=== PATIENT | female | born 1995 | race Caucasian/White ===

== ENCOUNTER 2018-01-29 23:31 | Inpatient (IN) | payer OTHER ==
[~2018-01-29] VITALS: Ht 165.1 cm; Wt 92.0 kg
[~2018-01-29 23:31] MED LIST: KEFLEX500 MG PO
[2018-01-30] MEDS ORDERED: TUMS200 MG PO (00:17)
[2018-01-30] MEDS ORDERED: VITAFOL-OB+DHA1 EACH PO (00:17)
--- NOTE | 2018-01-30 03:38 | PR ---
[facility] [address], [place] [address] Signed Progress Notes IP Datetime Report Generated by SHAHEEN: 01/30/2018 03:38 PROGRESS NOTES: [id number] Impression: Normal progression of labor Procedures: Sterile Vag Exam Plan: Continue present management Informed Consent Obtain: Vaginal Delivery; Risks, Benefits and Alternatives Discussed VITAL SIGNS: [id number] Vital Signs: Reviewed; Within Normal Limits EXAM: [id number] Dilatation: 6.0 Effacement: 80 Station: -2 Uterine Contractions: q 1 to 3 min MEMBRANES: [id number] Membrane Status: Ruptured Amniotic Fluid Color: Clear Comments: Essentially unchanged from last exam. Will change positions. Fetus A: [id number] FHR Baseline: 125 Variability: Moderate 6-25bpm Accelerations: 15X15 Decelerations: None FHR Category: Category I Presentation: Vertex Comments on Fetus A: No evidence of metabolic acidosis. Fetus B: [id number] Signing Physician: Kristina Membreno MD Copies: ~ *Electronically Signed* 01/30/18 0338 KRISTINA MEMBRENO MD PATIENT NAME: ALANA JONES PROGRESS NOTE DATE OF : 97 PHYSICIAN: KRISTINA MEMBRENO MD RPT #: [id number] REPORT IS CONFIDENTIAL AND NOT TO BE RELEASED WITHOUT AUTHORIZATION
== END 2018-01-31 11:50 | disposition home or self-care (01) | DRG 775 ==
LOC: FBCO 23:31 → FBC 23:42
PROVIDERS: ADMIT Obstetrics & Gynecology
PROC: 10E0XZZ Delivery of Products of Conception, External Approach (ICD-10-PCS; principal; 2018-01-29)
DX: O42.02 Full-term premature rupture of membranes, onset of labor within 24 hours of rupture (principal); Z3A.39 39 weeks gestation of pregnancy; Z37.0 Single live birth
CPT/HCPCS: 36415; 85027; J2590

== ENCOUNTER 2020-07-13 19:19 | Emergency (ER) | payer OTHER ==
[~2020-07-13] VITALS: Ht 165.1 cm; Wt 94.3 kg
[~2020-07-13 19:19] MED LIST changes: +TUMS200 MG PO; +VITAFOL-OB+DHA1 EACH PO
== END 2020-07-13 20:05 | disposition home or self-care (01) ==
LOC: ED 19:19
DX: O9A.211 Injury, poisoning and certain other consequences of external causes complicating pregnancy, first trimester (principal); S30.1XXA Contusion of abdominal wall, initial encounter; S30.0XXA Contusion of lower back and pelvis, initial encounter; Z3A.14 14 weeks gestation of pregnancy; V29.9XXA Motorcycle rider (driver) (passenger) injured in unspecified traffic accident, initial encounter
CPT/HCPCS: 99283

== ENCOUNTER 2020-12-26 04:34 | Inpatient (IN) | payer OTHER ==
--- NOTE | 2020-12-26 05:35 | NUR ---
0523 COVID swab obtained and taken to lab for processing.
== END 2020-12-27 12:35 | disposition home or self-care (01) | DRG 807 ==
LOC: FBCO 04:34 → FBC 04:52
PROVIDERS: ADMIT Obstetrics & Gynecology; ATTEND Obstetrics & Gynecology
PROC: 10E0XZZ Delivery of Products of Conception, External Approach (ICD-10-PCS; principal; 2020-12-26)
PROC: 10907ZC Drainage of Amniotic Fluid, Therapeutic from Products of Conception, Via Natural or Artificial Opening (ICD-10-PCS; 2020-12-26)
DX: O69.81X0 Labor and delivery complicated by cord around neck, without compression, not applicable or unspecified (principal); Z37.0 Single live birth; Z3A.38 38 weeks gestation of pregnancy; Z98.890 Other specified postprocedural states
CPT/HCPCS: 85027; A9270; C9803; J2590; J7121; U0003

== ENCOUNTER 2022-05-11 10:00 | Emergency (ER) | payer OTHER ==
[~2022-05-11] VITALS: Ht 165.1 cm; Wt 78.9 kg
[2022-05-11] MEDS ORDERED: PROTONIX40 MG PO (19:06)
== END 2022-05-11 19:18 | disposition home or self-care (01) ==
LOC: ED 10:00
DX: R10.13 Epigastric pain (principal); Z88.1 Allergy status to other antibiotic agents
CPT/HCPCS: 36415; 80053; 81001; 83690; 83735; 84703; 85025; 87502; 96374; 99284-25; J2405; U0003

== ENCOUNTER 2023-02-19 08:00 | Inpatient (IN) | payer OTHER ==
[~2023-02-19 08:00] MED LIST changes: +PROTONIX40 MG PO
[2023-02-19 08:32] LABS: AMNISURE ROM TEST POSITIVE
[2023-02-19 09:07] LABS: AMPHETAMINES, UR NEGATIVE (NEGATIVE); BARBITURATES, UR NEGATIVE (NEGATIVE); BENZODIAZEPINES, UR NEGATIVE (NEGATIVE); BUPRENORPHINE,UR NEGATIVE (NEGATIVE); COCAINE, UR NEGATIVE (NEGATIVE); MARIJUANA (THC), UR NEGATIVE (NEGATIVE); MDMA, UR NEGATIVE (NEGATIVE); METHADONE, UR NEGATIVE (NEGATIVE); METHAMPHETAMINE, UR NEGATIVE (NEGATIVE); OPIATES, UR NEGATIVE (NEGATIVE); OXYCODONE, UR NEGATIVE (NEGATIVE); PHENCYCLIDINE, UR NEGATIVE (NEGATIVE); TRICYCLIC ANTIDEPRESSANT, UR NEGATIVE (NEGATIVE)
--- NOTE | 2023-02-19 09:30 | NUR ---
RT COLLECTED RAPID COVID 19, RSV, AND FLU SWAB PER DR REQUEST USING IN HOUSE LAB WITH NO COMPLICATIONS AT THIS TIME.
[2023-02-19 09:44] VITALS: BP 119/67
[2023-02-19 09:49] LABS: HEMATOCRIT 37.7 % (35.0-50.0); HEMOGLOBIN 12.5 g/dL (12.0-18.0); MCH 29.3 (27-36); MCHC 33.2 g/dl (30-36); MCV 88.1 fl (81-99); RBC 4.28 M/ul (4.3-5.7); RDW 14.7 (10.5-15.0)
[2023-02-19 10:16] LABS: INFLUENZA B NAA NEGATIVE (NEGATIVE); RESPIRATORY SYNCYTIAL VIR NAA NEGATIVE (NEGATIVE)
[2023-02-19 10:26] LABS: ABO A; ANTIBODY SCREEN NEGATIVE; RH POSITIVE
--- NOTE | 2023-02-19 16:14 | PR ---
[facility] [address] [facility] [address] [facility] [address] [place], [place] [address] Signed Progress Notes IP Datetime Report Generated by CPN: 02/19/2023 16:13 PROGRESS NOTES: [id number] Impression: Normal Progression of Labor; Reassuring Heart Rate Procedures: Intrauterine Pressure Catheter; Sterile Vag Exam Plan: Continue Present Management; Anticipate Vaginal Delivery Informed Consent Obtain: Vaginal Delivery VITAL SIGNS: [id number] Vital Signs: Reviewed; Within Normal Limits EXAM: [id number] Dilatation: 7.0 Effacement: 80 Station: -1 Contractions: irregular with irritability MEMBRANES: [id number] ROM Note: Large amount of fluid noted at this time Comments: Pt seen and examined. Doing well. Pain tolerable w/ nitrous oxide. Pitocin augmentation. FHT reassuring. IUPC placed to help monitor contractions closer. Anticipate soon. All questions answered. FETUS A: [id number] FHR Baseline: 125 Variability: Moderate 6-25bpm Accelerations: 15X15 Decelerations: None FHR Category: Category I Presentation: Vertex FETUS B: [id number] Signing Physician: Diana Alexis DO Copies: ~ *Electronically Signed* 02/19/23 2193 DIANA ALEXIS (JALEESA) DO PATIENT NAME: ALANA ROSADO PROGRESS NOTE DATE OF : 97 PHYSICIAN: DIANA ALEXIS (JD) DO RPT #: [id number] REPORT IS CONFIDENTIAL AND NOT TO BE RELEASED WITHOUT AUTHORIZATION
[2023-02-20 05:33] LABS: MCH 29.5 (27-36); MCHC 33.5 g/dl (30-36); RBC 4.09 M/ul (4.3-5.7); RDW 14.5 (10.5-15.0)
--- NOTE | 2023-02-20 10:02 | PR ---
[facility] [address] [place], [place] [address] Signed PP Progress Notes Datetime Report Generated by CPN: 02/20/2023 10:02 SUBJECTIVE: [id number] Pain: Within Normal Limits Nausea/Vomiting: Denies Flatus: Yes Bowel Movement: Yes Vital Signs: [id number] Vital Signs: Reviewed; Within Normal Limits Abdomen/Uterus: Normal Lochia: Normal Extremities: Normal Progress: Normal IMPRESSION/PLAN/PROCEDURES: [id number] Impression: Normal Progression Plan: Discharge Procedures: None Progress Notes: S: 27 you s/p . PPD #1. Doing well. Denies CALIXTO, CP, SOB, F/C, N/V, RUQ pain, changes in vision, vaginal discharge. Tolerating regular diet, ambulating, voiding on her own, pain well controlled. O: AFVSS Abd: Soft, non tender. Fundus firm and below umbilicus. Musc: FELDMAN. No C/C/E. A/P: Paient well. Meeting all hospital milestones. Will discharge home today. Signing Physician: Anita Rosado MD Copies: ~ *Electronically Signed* 02/20/23 1002 ANITA ROSADO MD PATIENT NAME: ALANA ROSADO PROGRESS NOTE DATE OF : 97 PHYSICIAN: ANITA ROSADO MD RPT #: [id number] REPORT IS CONFIDENTIAL AND NOT TO BE RELEASED WITHOUT AUTHORIZATION
== END 2023-02-20 18:02 | disposition home or self-care (01) | DRG 807 ==
LOC: FBCO 08:00 → FBC 08:38
PROVIDERS: Obstetrics & Gynecology; ADMIT Obstetrics & Gynecology; ATTEND Obstetrics & Gynecology
PROC: 10E0XZZ Delivery of Products of Conception, External Approach (ICD-10-PCS; principal; 2023-02-19)
PROC: 10H07YZ Insertion of Other Device into Products of Conception, Via Natural or Artificial Opening (ICD-10-PCS; 2023-02-19)
DX: O42.02 Full-term premature rupture of membranes, onset of labor within 24 hours of rupture (principal); Z37.0 Single live birth; O76 Abnormality in fetal heart rate and rhythm complicating labor and delivery; Z20.822 Contact with and (suspected) exposure to COVID-19; Z67.10 Type A blood, Rh positive; Z3A.38 38 weeks gestation of pregnancy
CPT/HCPCS: 36415; 84112; 85027; 86850; 86900; 86901; 87502; A9270; C9803; J2590; U0002

== ENCOUNTER 2025-01-25 15:27 | Inpatient (IN) | payer OTHER ==
[~2025-01-25] VITALS: Ht 167.6 cm; Wt 102.1 kg
[2025-01-25] MEDS ORDERED: LIDOCAINE HCL 1% 30 ML SDV INJ PRN (16:45)
[2025-01-25] MEDS ORDERED: TERBUTALINE SULFATE 1 MG/ML AMP SUB-Q PRN (16:45)
[2025-01-25] MEDS ORDERED: MAGNESIUM HYDROXIDE/AL HYDROX 30 ML CUP PO PRN (16:45)
[2025-01-25] MEDS ORDERED: CALCIUM CARBONATE 500 MG CHEW PO PRN (16:45)
[2025-01-25] MEDS ORDERED: PENICILLIN G POTASSIUM 5 MUNITS in SODIUM CHLORIDE 0.9% 100 ML IV ONE (17:00)
[2025-01-25 17:11] LABS: MCH 27.2 PG (25.6-32.2); MCHC 32.5 g/dL (32.2-35.5); MCV 83.7 fL (79.4-94.8); RBC 3.86 M/uL (3.93-5.22)
[2025-01-25] MEDS ORDERED: LACTATED RINGER'S 1,000 ML IV PRN (17:15)
[2025-01-25 17:41] LABS: AMPHETAMINES, URINE NEGATIVE (NEGATIVE); BARBITURATES, URINE NEGATIVE (NEGATIVE); BENZODIAZEPINE, URINE NEGATIVE (NEGATIVE); CANNABINOID, URINE NEGATIVE (NEGATIVE); COCAINE, URINE NEGATIVE (NEGATIVE); ECSTASY, URINE NEGATIVE (NEGATIVE); FENTANYL, URINE NEGATIVE (NEGATIVE); METHADONE, URINE NEGATIVE (NEGATIVE); OPIATES, URINE NEGATIVE (NEGATIVE); OXYCODONE, URINE NEGATIVE (NEGATIVE); PHENCYCLIDINE, URINE NEGATIVE (NEGATIVE)
[2025-01-25] MEDS ORDERED: OXYTOCIN/0.9 % SODIUM CHLORIDE 500 ML IV SCH (17:45)
[2025-01-25 17:49] LABS: ABO A; ANTIBODY SCREEN NEGATIVE; RH POSITIVE
--- NOTE | 2025-01-25 19:25 | PR ---
[facility] [address] [place], [place] [address] Signed Progress Notes IP Datetime Report Generated by CPN: 01/25/2025 19:25 PROGRESS NOTES: [id number] Impression: Normal Progression of Labor; Reassuring Heart Rate Procedures: Sterile Vag Exam Plan: Continue Present Management Informed Consent Obtain: Vaginal Delivery VITAL SIGNS: [id number] Vital Signs: Reviewed; Within Normal Limits EXAM: [id number] Dilatation: 5.0 Effacement: 60 Station: -3 Contractions: q 1-4 min MEMBRANES: [id number] Comments: Pt seen and examined. Contractions uncomfortable. No SROM / bleeding. Cx 5/60. Continue expectant management. Plan AROM after second dose of PCN. All questions answered. FETUS A: [id number] FHR Baseline: 125 Variability: Moderate 6-25bpm Accelerations: 15X15 (Annotations: Data stored by N on behalf of user) Decelerations: None FHR Category: Category I Presentation: Vertex Comments on Fetus A: No evidence of metabolic acidosis FETUS B: [id number] Signing Physician: Diana Alexis DO Copies: ~ *Electronically Signed* 01/25/251924 DIANA ALEXIS (JALEESA) DO PATIENT NAME: ALANA ROSADO PROGRESS NOTE DATE OF : 97 PHYSICIAN: DIANA ALEXIS) DO RPT #: [id number] REPORT IS CONFIDENTIAL AND NOT TO BE RELEASED WITHOUT AUTHORIZATION
[2025-01-25] MEDS ORDERED: PENICILLIN G POTASSIUM 2.5 MUNITS in DEXTROSE 5% 100 ML IV SCH (21:00)
--- NOTE | 2025-01-25 22:27 | PR ---
[facility] [address] [place], [place] [address] Signed Progress Notes IP Datetime Report Generated by CPN: 01/25/2025 22:27 PROGRESS NOTES: [id number] Impression: Normal Progression of Labor; Reassuring Heart Rate Procedures: Artificial ROM; Sterile Vag Exam Plan: Continue Present Management; Anticipate Vaginal Delivery Informed Consent Obtain: Vaginal Delivery VITAL SIGNS: [id number] Vital Signs: Reviewed; Within Normal Limits EXAM: [id number] Dilatation: 5.5 Effacement: 60 Station: -2 Contractions: irregular MEMBRANES: [id number] Comments: Pt seen and examined. Doing well. Comfortable w/ contractions. Declines epidural. Vertex well applied. Recommened AROM which was performed w/out difficulty for moderate amount clear fluid. Mother and fetus tolerated well. FETUS A: [id number] FHR Baseline: 125 Variability: Moderate 6-25bpm Accelerations: 15X15 (Annotations: Data stored by N on behalf of user) Decelerations: None FHR Category: Category I Presentation: Vertex Comments on Fetus A: No evidence of metabolic acidosis FETUS B: [id number] Signing Physician: Diana Alexis DO Copies: ~ *Electronically Signed* 01/25/252226 DIANA ALEXIS (JALEESA) DO PATIENT NAME: ALANA ROSADO PROGRESS NOTE DATE OF : 97 PHYSICIAN: DIANA ALEXIS) DO RPT #: [id number] REPORT IS CONFIDENTIAL AND NOT TO BE RELEASED WITHOUT AUTHORIZATION
--- NOTE | 2025-01-26 02:31 | PR ---
[facility] [address] [place], [place] [address] Signed Progress Notes IP Datetime Report Generated by CPN: 01/26/2025 02:31 PROGRESS NOTES: [id number] Impression: Normal Progression of Labor; Reassuring Heart Rate Procedures: Intrauterine Pressure Catheter; Scalp Electrode; Sterile Vag Exam Plan: Continue Present Management Informed Consent Obtain: Vaginal Delivery VITAL SIGNS: [id number] Vital Signs: Reviewed; Within Normal Limits EXAM: [id number] Dilatation: 5.5 Effacement: 60 Station: -2 Contractions: q 2 min MEMBRANES: [id number] Comments: Pt seen and examined. Doing well. Contractions more uncomfortable. Minimal cervical change on exam. Recommended IUPC and FSE and pt agreed. Placed w/out difficulty. Will monitor contractions for adequacy and consider augmentation if needed. All questions answered. FETUS A: [id number] FHR Baseline: 125 Variability: Moderate 6-25bpm Accelerations: 15X15 (Annotations: Data stored by N on behalf of user) Decelerations: None FHR Category: Category I Presentation: Vertex Comments on Fetus A: No evidence of metabolic acidosis FETUS B: [id number] Signing Physician: Diana Alexis DO Copies: ~ *Electronically Signed* 01/26/25 0231 DIANA ALEXIS (JALEESA) DO PATIENT NAME: ALANA ROSADO PROGRESS NOTE DATE OF : 97 PHYSICIAN: DIANA ALEXIS (JD) DO RPT #: [id number] REPORT IS CONFIDENTIAL AND NOT TO BE RELEASED WITHOUT AUTHORIZATION
--- NOTE | 2025-01-26 05:59 | PR ---
[facility] [address] [place], [place] [address] Signed Progress Notes IP Datetime Report Generated by CPN: 01/26/2025 05:59 PROGRESS NOTES: [id number] Impression: Normal Progression of Labor; Reassuring Heart Rate Procedures: Intrauterine Pressure Catheter; Scalp Electrode; Sterile Vag Exam Plan: Continue Present Management; Anticipate Vaginal Delivery Informed Consent Obtain: Vaginal Delivery VITAL SIGNS: [id number] Vital Signs: Reviewed; Within Normal Limits EXAM: [id number] Dilatation: 7.0 Effacement: 60 Station: -3 Contractions: q 2 min MEMBRANES: [id number] Comments: Pt seen and examined. Doing well. Contractions more uncomfortable. Minimal cervical change on exam. Recommended IUPC and FSE and pt agreed. Placed w/out difficulty. Will monitor contractions for adequacy and consider augmentation if needed. All questions answered. FETUS A: [id number] FHR Baseline: 125 Variability: Moderate 6-25bpm Accelerations: 15X15 (Annotations: Data stored by N on behalf of user) Decelerations: Variable FHR Category: Category II Presentation: Vertex Comments on Fetus A: No evidence of metabolic acidosis FETUS B: [id number] Signing Physician: Diana Alexis DO Copies: ~ *Electronically Signed* 01/26/25 0559 DIANA ALEXIS (JALEESA) DO PATIENT NAME: ALANA ROSADO PROGRESS NOTE DATE OF : 97 PHYSICIAN: DIANA ALEXIS) DO RPT #: [id number] REPORT IS CONFIDENTIAL AND NOT TO BE RELEASED WITHOUT AUTHORIZATION
[2025-01-26] MEDS ORDERED: OXYTOCIN/0.9 % SODIUM CHLORIDE 500 ML IV SCH ×2 (08:00→11:30)
--- NOTE | 2025-01-26 09:30 | PR ---
[facility] [address] [place], [place] [address] Signed Progress Notes IP Datetime Report Generated by CPN: 01/26/2025 09:29 PROGRESS NOTES: [id number] Impression: Normal Progression of Labor; Reassuring Heart Rate Procedures: Sterile Vag Exam Plan: Continue Present Management Other Plans: Continues on pitocin augmentation Informed Consent Obtain: Vaginal Delivery VITAL SIGNS: [id number] Vital Signs: Reviewed; Within Normal Limits EXAM: [id number] Dilatation: 7.0 Effacement: 70 Station: -2 Contractions: q 2-4 minutes MEMBRANES: [id number] Comments: Pt seen and examined. Doing well. Ctxs more painful and feeling more pelvic pressure. On low dose pitocin. No concerns. Anticipate FETUS A: [id number] FHR Baseline: 125 Variability: Moderate 6-25bpm Accelerations: 15X15 (Annotations: Data stored by CPN on behalf of user) Decelerations: Variable FHR Category: Category II Presentation: Vertex Comments on Fetus A: No evidence of metabolic acidosis FETUS B: [id number] Signing Physician: Diana Alexis DO Copies: ~ *Electronically Signed* 01/26/25928 DIANA ALEXIS (JALEESA) DO PATIENT NAME: ALANA ROSADO PROGRESS NOTE DATE OF : 97 PHYSICIAN: DIANA ALEXIS (JD) DO RPT #: [id number] REPORT IS CONFIDENTIAL AND NOT TO BE RELEASED WITHOUT AUTHORIZATION
[2025-01-26] MEDS ORDERED: TRANEXAMIC ACID IN NACL,ISO-OS 0 ML IV ONE (10:58)
[2025-01-26] MEDS ORDERED: MAGNESIUM HYDROXIDE 30 ML UDC PO PRN (11:30)
[2025-01-26] MEDS ORDERED: IBUPROFEN 600 MG TAB PO PRN (11:30)
[2025-01-26] MEDS ORDERED: WITCH HAZEL/GLYCERIN 1 EA PAD TOP PRN (11:30)
[2025-01-26] MEDS ORDERED: MAGNESIUM HYDROXIDE/AL HYDROX 30 ML CUP PO PRN (11:30)
[2025-01-26] MEDS ORDERED: BENZOCAINE 60 ML AEROSOL TOP PRN (11:30)
[2025-01-26] MEDS ORDERED: CALCIUM CARBONATE 500 MG CHEW PO PRN (11:30)
[2025-01-26] MEDS ORDERED: HYDROCORTISONE ACETATE 25 MG SUPP PR PRN (11:30)
[2025-01-26] MEDS ORDERED: ACETAMINOPHEN 325 MG TAB PO PRN (11:30)
[2025-01-26] MEDS ORDERED: SENNOSIDES/DOCUSATE 1 EA TAB PO SCH (21:00)
[2025-01-27 05:57] LABS: MCH 27.1 PG (25.6-32.2); MCHC 33.0 g/dL (32.2-35.5); MCV 82.3 fL (79.4-94.8); RBC 3.5 M/uL (3.93-5.22)
--- NOTE | 2025-01-27 07:40 | PR ---
[facility] [address] [facility] [place], [place] [address] Signed PP Progress Notes Datetime Report Generated by CPN: 01/27/2025 07:40 SUBJECTIVE: [id number] Pain: Within Normal Limits Nausea/Vomiting: Present Flatus: Yes Bowel Movement: No Vital Signs: [id number] Vital Signs: Reviewed; Within Normal Limits Cardiovascular: Normal Respiratory: Normal Abdomen/Uterus: Normal Lochia: Normal Vulva/Perineum: Not Done Breasts: Not Done CVA Tenderness: Normal Extremities: Normal Incision: Not Applicable Progress: Normal Exam Comments: Fundus firm U-2 nontender IMPRESSION/PLAN/PROCEDURES: [id number] Impression: Normal Progression Plan: Discharge Progress Notes: Pt seen and examined. Doing well. Ambulating, voiding, and tolerating full diet. Pain and lochia minimal. . No fevers/chills or other concerns. Desires d/c home. Reviewed d/c instructions and medications (Ibuprofen and ferrous sulfate). Desires bilateral salpingectomy . Reviewed AM Hgb. All questions answered. Signing Physician: Diana Alexis DO Copies: ~ *Electronically Signed* 01/27/25 0740 DIANA ALEXIS (JALEESA) DO PATIENT NAME: ALANA ROSADO PROGRESS NOTE DATE OF : 97 PHYSICIAN: DIANA ALEXIS (JD) DO RPT #: [id number] REPORT IS CONFIDENTIAL AND NOT TO BE RELEASED WITHOUT AUTHORIZATION
== END 2025-01-27 14:26 | disposition home or self-care (01) | DRG 807 ==
LOC: FBCO 15:27 → FBC 16:45 → FBCO 16:50 → FBC 16:59
PROVIDERS: ADMIT Obstetrics & Gynecology; ATTEND Obstetrics & Gynecology
PROC: 10E0XZZ Delivery of Products of Conception, External Approach (ICD-10-PCS; principal; 2025-01-25)
DX: O69.81X0 Labor and delivery complicated by cord around neck, without compression, not applicable or unspecified (principal); Z37.0 Single live birth; O26.86 Pruritic urticarial papules and plaques of pregnancy (PUPPP); O99.824 Streptococcus B carrier state complicating childbirth; Z87.891 Personal history of nicotine dependence; Z3A.38 38 weeks gestation of pregnancy; O99.214 Obesity complicating childbirth
CPT/HCPCS: 36415; 59025; 80307; 85027; 86850; 86900; 86901; A9270; G0463; J2540; J7121